=== PATIENT | female | born 1970 | race Caucasian/White ===

== ENCOUNTER → 2017-03-25 | Outpatient (CLI) | payer BC ==
[~2017-03-25] MED LIST: ADVIL200 MG PO; ONE DAILY FOR1 EAC1 PO; SILVADENE20 GM TP; TAMOXIFEN CITRA20 MG PO; TRIAMTERENE-HC1 EAC1 PO
== END | disposition home or self-care (01) ==
LOC: CDC 10:24
DX: R94.31 Abnormal electrocardiogram [ECG] [EKG] (principal); S83.242D Other tear of medial meniscus, current injury, left knee, subsequent encounter; Z88.1 Allergy status to other antibiotic agents
CPT/HCPCS: 93000